=== PATIENT | male | born 1965 | race Caucasian/White ===

== ENCOUNTER 2017-01-28 20:39 | Inpatient (IN) ==
[2017-01-28] MEDS ORDERED: Nitroglycerin 0.4 MG TAB.SUBL SL ONE (20:49)
[2017-01-28] MEDS: Nitroglycerin 0.4 MG TAB.SUBL SL ONE ×3 (20:50→21:19)
--- NOTE | 2017-01-28 21:06 | Emergency Department Note ---
Disposition Clinical Impression: Suicidal ideation Chest pain Qualifiers: Chest pain type: unspecified Qualified Code(s): R07.9 - Chest pain, unspecified Disposition: Admitted As Inpatient Condition: Good Time of Disposition: 23:49 Chest Pain HPI - General Chief Complaint: ED Chest Pain Stated Complaint: SI/chest pain Time Seen by Provider: 01/28/17 20:45 Source: patient, EMS Mode of arrival: EMS Limitations: no limitations Vital Signs Reviewed: Yes Nursing Notes Reviewed: Yes - History of Present Illness HPI Narrative: 51-year-old male history of bipolar, depression, smoker presents with chest pain and suicidal ideation. States earlier today around 1600 he began to develop a dull ache in his left chest nonradiating. He has associated shortness of breath, nausea and vomiting. Denies any diaphoresis. No history of cardiac ischemic disease. He denies any family history. Nothing makes a better worse. He was given 4 baby aspirin and nitro without much relief. He has also endorsing suicidal ideation for the past 2 days. No definitive plan. Denies any hallucination. Denies any congestion. He is recovering from a alcohol abuse program and does admit to drinking 3 beers earlier today. No access to guns at home. He has a history of [facility]izations at [facility]. Was recently discharged. He just recently saw his psychiatrist day ago he continues to take lithium and Latuda. No changes to medications. He has a history of suicide attempt by attempting to cast himself with carbon monoxide turning the car on in the closed space. Severity scale (1-10): 8 - Related Data Home Medications Medication Instructions Recorded Confirmed Baclofen [Lioresal] 15 mg PO TID 01/29/17 01/29/17 Cedar Carbonate 300 mg PO DAILY 01/29/17 01/29/17 Cedar Carbonate [Cedar 600 mg PO HS 01/29/17 01/29/17 Carbonate] Lurasidone HCl [Latuda] 80 g PO QPM 01/29/17 01/29/17 Propranolol [Inderal] 10 mg PO BID 01/29/17 01/29/17 Trazodone HCl [Trazodone HCl] 100 mg PO HS 01/29/17 01/29/17 hydrOXYzine HCl [Hydroxyzine HCl] 75 mg PO Q6HR PRN 01/29/17 01/29/17 Allergies Allergy/AdvReac Type Severity Reaction Status Date / Time No Known Allergies Allergy Verified 01/28/17 20:41 All systems ED: reviewed and negative except as stated. Review of Systems: As Per HPI Constitutional: Denies: fever, chills Cardiovascular: Reports: chest pain. Denies: dyspnea on exertion Respiratory: Reports: dyspnea. Denies: cough Gastrointestinal: Reports: nausea, vomiting. Denies: abdominal pain Genitourinary: Denies: urgency, dysuria Musculoskeletal: Denies: back pain, neck pain Integumentary: Denies: rash, abrasion Neurological: Denies: headache, weakness Psychiatric: Reports: depression, suicidal thoughts. Denies: anxiety, homicidal thoughts, auditory hallucinations, visual hallucinations Endocrine: Denies: fatigue Chest Pain PMH - Past Medical History Medical history: Reports: no medical history Psychiatric history: Reports: anxiety, bipolar, depression, panic disorder, PTSD , prior suicide attempt, previous psychiatric hospitalization - Social History Smoking Status: Former smoker Alcohol use: Reports: occasionally Drug use: Reports: none Physical Exam - General Limitations: no limitations General appearance: alert, in no apparent distress - Head Head exam: atraumatic, normocephalic, normal inspection - Eye Eye exam: Present: normal appearance, PERRL, EOMI - ENT ENT exam: normal exam, normal oropharynx, mucous membranes moist - Neck Neck exam: Present: normal inspection, full ROM, trachea midline - Chest Chest inspection: Present: normal inspection, symmetric chest wall rise, tenderness (Left chest) - Respiratory Respiratory exam: Present: normal lung sounds bilaterally. Absent: respiratory distress, wheezes - Cardiovascular Cardiovascular exam: Present: regular rate, normal rhythm, normal heart sounds. Absent: systolic murmur, diastolic murmur - Abdominal Exam Abdominal exam: Present: soft, Non-Tender, normal bowel sounds. Absent: tenderness, distention, guarding, rebound, rigidity - Extremities Exam Extremities exam: Present: normal inspection, full ROM, normal capillary refill. Absent: tenderness, pedal edema, calf tenderness - Back Exam Back exam: Present: normal inspection, full ROM. Absent: tenderness, CVA tenderness (R), CVA tenderness (L) - Neurological Exam Neurological exam: Present: alert, oriented X3 - Psychiatric Psychiatric exam: Present: depressed, suicidal ideation. Absent: normal affect , normal mood, anxious - Skin Skin exam: Present: warm, dry, intact, normal color Course Course Narrative: 51-year-old male presented with chest pain. He has some associated shortness of breath, nausea and vomiting. Denies any history of cardiac ischemic disease. No significant family history. Does admit to alcohol use earlier today. He has also endorsing some suicidal ideation. He has recently been admitted to the psychiatric facility at the [facility]. Chest pain workup initiated. Patient has been given aspirin as well as nitro will attempt to control his pain better. - Reevaluation(s) Reevaluation #1: EKG is unremarkable. Troponins negative. His labs or otherwise unremarkable. He continues to have some chest discomfort after given nitroglycerin, Toradol as well as Dilaudid. He has a heart score 3. He also still endorses some suicidal ideation. Due to chest pain he cannot be discharged to the [facility] for psychiatric evaluation. [facility]imbres here for further chest pain workup and have behavioral health [facility] inpatient. Patients agreeable with this plan. Impression is chest pain and suicidal ideation. - Consultations Consultation #1: Spoke with on-call hospitalist popeye Alejandro to admit for chest pain R/O ACS and suicidal ideation. No further orders at this time Time: 23:06 Vital Signs Temperature 99.0 F 01/28/17 20:44 Pulse Rate 80 01/28/17 20:44 Respiratory Rate 20 01/28/17 20:44 Blood Pressure 143/88 01/28/17 20:44 O2 Sat by Pulse Oximetry 96 01/28/17 20:44 Temperature 97.8 F 01/29/17 03:14 Pulse Rate 58 01/29/17 03:14 Respiratory Rate 16 01/29/17 03:14 Blood Pressure 111/74 01/29/17 03:14 O2 Sat by Pulse Oximetry 94 01/29/17 03:14 Oxygen Delivery Oxygen Delivery Room Air Chest Pain - Medical Records Medical records reviewed: Yes I reviewed the patient's medical records. - Lab Data Lab results reviewed: Yes I reviewed the patient's lab results. Result diagrams: 01/28/17 21:10 01/28/17 21:10 Lab Results 01/28/17 01/28/17 01/28/17 Range/Units 21:10 21:10 21:10 WBC 8.5 (4.3-11.1) K/mcL RBC 4.31 (4.19-5.50) M/mcL Hgb 13.0 (12.9-16.9) g/dL Hct 39.1 (37.5-50.1) % MCV 90.7 (83.0-100.0) fL MCH 30.2 (28.0-33.3) pg MCHC 33.2 (31.6-35.5) g/dL RDW 15.9 H (11.5-14.5) % Plt Count 158 (140-400) K/mcL MPV 9.1 L (9.4-12.4) fL Immature Gran % 0.4 (0-4) % Seg Neutrophils % 69.0 % Lymphocytes % 19.6 % Monocytes % 8.5 % Eosinophils % 1.9 % Basophils % 0.6 % Neutrophils # 5.9 (1.6-8.9) K/mcL Lymphocytes # 1.7 (0.6-4.6) K/mcL Monocytes # 0.7 (0.0-1.3) K/mcL Eosinophils # 0.2 (0.0-0.6) K/mcL Basophils # 0.1 (0.0-0.2) K/mcL Sodium 136 (136-145) mEq/L Potassium 3.8 (3.5-4.5) mEq/L Chloride 104 (98-109) mEq/L Carbon Dioxide 22 (19-29) mEq/L BUN 13 (8-26) mg/dL Creatinine 1.13 (0.72-1.25) mg/dL Est GFR ( Amer) > 60 (> 60) Est GFR (Non-Af Amer) > 60 (> 60) BUN/Creatinine Ratio 12 (6-26) Glucose 114 H (70-99) mg/dL Calculated Osmolality 283 (280-300) Calcium 9.1 (8.6-10.8) mg/dL Troponin I (0-0.03) ng/mL Urine Color (Yellow) Urine Clarity (Clear) Urine pH (5.0-8.0) pH Units Ur Specific [place] (1.010-1.025) Urine Protein (Neg-Trace) mg/dL Urine Glucose (UA) (Normal) mg/dL Urine Ketones (Negative) mg/dL Urine Blood (Negative) Urine Nitrite (Negative) Urine Bilirubin (Negative) Urine Urobilinogen (Normal) mg/dL Ur Leukocyte Esterase (Negative) Salicylates < 5.0 L (15-30) mg/dL Urine Opiates Screen (Lfbtzt=860) ng/mL Acetaminophen < 1.0 L (10-30) mcg/mL Ur Barbiturates Screen (Gbqhkc=308) ng/mL Ur Phencyclidine Scrn (Cutoff=25) ng/mL Ur Amphetamines Screen (Bcncdt=2521) ng/mL U Benzodiazepines Scrn (Sesure=599) ng/mL Urine Cocaine Screen (Cutoff= 300) ng/mL U Marijuana (THC) Screen (Cutoff = 50) ng/mL Ethyl Alcohol < 10 (0-10) mg/dL 01/28/17 01/28/17 01/28/17 Range/Units 21:10 21:35 21:35 WBC (4.3-11.1) K/mcL RBC (4.19-5.50) M/mcL Hgb (12.9-16.9) g/dL Hct (37.5-50.1) % MCV (83.0-100.0) fL MCH (28.0-33.3) pg MCHC (31.6-35.5) g/dL RDW (11.5-14.5) % Plt Count (140-400) K/mcL MPV (9.4-12.4) fL Immature Gran % (0-4) % Seg Neutrophils % % Lymphocytes % % Monocytes % % Eosinophils % % Basophils % % Neutrophils # (1.6-8.9) K/mcL Lymphocytes # (0.6-4.6) K/mcL Monocytes # (0.0-1.3) K/mcL Eosinophils # (0.0-0.6) K/mcL Basophils # (0.0-0.2) K/mcL Sodium (136-145) mEq/L Potassium (3.5-4.5) mEq/L Chloride (98-109) mEq/L Carbon Dioxide (19-29) mEq/L BUN (8-26) mg/dL Creatinine (0.72-1.25) mg/dL Est GFR ( Amer) (> 60) Est GFR (Non-Af Amer) (> 60) BUN/Creatinine Ratio (6-26) Glucose (70-99) mg/dL Calculated Osmolality (280-300) Calcium (8.6-10.8) mg/dL Troponin I 0.00 (0-0.03) ng/mL Urine Color Yellow (Yellow) Urine Clarity Clear (Clear) Urine pH 6.5 (5.0-8.0) pH Units Ur Specific [place] 1.023 (1.010-1.025) Urine Protein Negative (Neg-Trace) mg/dL Urine Glucose (UA) Normal (Normal) mg/dL Urine Ketones Negative (Negative) mg/dL Urine Blood Negative (Negative) Urine Nitrite Negative (Negative) Urine Bilirubin Negative (Negative) Urine Urobilinogen Normal (Normal) mg/dL Ur Leukocyte Esterase Negative (Negative) Salicylates (15-30) mg/dL Urine Opiates Screen Negative (Sfvfgp=629) ng/mL Acetaminophen (10-30) mcg/mL Ur Barbiturates Screen Negative (Pcdpac=198) ng/mL Ur Phencyclidine Scrn Negative (Cutoff=25) ng/mL Ur Amphetamines Screen Negative (Tmheun=5298) ng/mL U Benzodiazepines Scrn Negative (Mdvnfb=934) ng/mL Urine Cocaine Screen Negative (Cutoff= 300) ng/mL U Marijuana (THC) Screen Negative (Cutoff = 50) ng/mL Ethyl Alcohol (0-10) mg/dL - Radiology Data Radiology results reviewed: Yes I reviewed the patient's radiology results. Chest X-Ray 01/28/17 20:59 IMPRESSION: No acute process. D/ / Ricky Stock MD / Ricky Stock MD Interpreting Provider: Ricky Stock MD - EKG Data EKG attestation: Yes I reviewed and interpreted this EKG. EKG results narrative: EKG performed 2041 normal sinus rhythm 81 bpm normal axis, no ST elevations or depression, diffuse T wave flattening, no T wave inversion, Q waves seen in inferior leads. Intervals are within normal limits. This is a abnormal EKG. No old EKG for comparison. No acute ischemic changes. Heart Score - Score History: Slightly Suspicious EKG: Non Specific repolarisation Disturbance Age: 45-65 Risk Factors: 1-2 risk factors Troponin: Less than normal limit HEART Score Total: 3 Attestation Statement - Attestation Attestation: I, Pietro Manuel MD, personally evaluated this patient and discussed their management with the resident physician. I reviewed the resident's note and agree with the documented findings, medical decision making, and plan of care. 51-year-old male presents to the emergency department with a complaint of left upper chest pain which started approximately 5 hours prior to arrival. The pain is been constant since onset and is worse with exertion. Patient describes the pain as a dull ache and pressure and rates the pain an 8 out of 10. He does complain of shortness of breath associated with the pain. No diaphoresis. Nausea and some vomiting. No abdominal pain. No cough or fever. Patient states he has a history of heart problems but has never had an ME or stents. He also has a psychiatric history and states that he just got out of the [facility] psychiatric unit about 3 weeks ago. He admits to having suicidal ideations. He also has a history of alcohol abuse and admits to drinking at least 3 beers today. On examination patient is a well-developed well-nourished male in no acute distress. He is alert and oriented 3. There is no cyanosis or diaphoresis. Chest is nontender to palpation. Breath sounds are clear and equal bilaterally. Heart regular rate and rhythm. Abdomen is soft and nontender with normal bowel sounds. EKG shows a normal sinus rhythm with a heart rate of 81. There is a Q-wave in lead 3 and aVF suggesting a possible old ME inferiorly. There is also diffuse T -wave flattening. No acute ST segment elevation or depression is noted.
[2017-01-28 21:21] LABS: Basophils # 0.1 K/mcL (0.0-0.2); Basophils % 0.6 %; Eosinophils # 0.2 K/mcL (0.0-0.6); Eosinophils % 1.9 %; Hematocrit 39.1 % (37.5-50.1); Immature Granulocytes % 0.4 % (0-4); Lymphocytes # 1.7 K/mcL (0.6-4.6); Lymphocytes % 19.6 %; Mean Corpuscular HGB Conc 33.2 g/dL (31.6-35.5); Mean Corpuscular Hemoglobin 30.2 pg (28.0-33.3); Mean Corpuscular Volume 90.7 fL (83.0-100.0); Mean Platelet Volume 9.1 fL (9.4-12.4); Monocytes # 0.7 K/mcL (0.0-1.3); Monocytes % 8.5 %; Neutrophils # 5.9 K/mcL (1.6-8.9); Platelet Count 158 K/mcL (140-400); Red Blood Count 4.31 M/mcL (4.19-5.50); Red Cell Distribution Width 15.9 % (11.5-14.5)
[2017-01-28] MEDS ORDERED: Ketorolac 30 MG/ML VIAL IVP ONE (21:32)
[2017-01-28 21:34] LABS: BUN/Creatinine Ratio 12 (6-26); Blood Urea Nitrogen 13 mg/dL (8-26); Calcium 9.1 mg/dL (8.6-10.8); Carbon Dioxide 22 mEq/L (19-29); Chloride 104 mEq/L (98-109); Glucose 114 mg/dL (70-99); Osmolality,Calculated 283 (280-300); Sodium 136 mEq/L (136-145); eGFR For African Americans > 60 (> 60); eGFR For Non-African Americans > 60 (> 60)
[2017-01-28 21:35] LABS: Potassium 3.8 mEq/L (3.5-4.5)
[2017-01-28 21:42] LABS: Bilirubin,Urine Negative (Negative); Blood,Urine Negative (Negative); Clarity,Urine Clear (Clear); Color,Urine Yellow (Yellow); Glucose,Urine (UA) Normal (Normal); Ketones,Urine Negative (Negative); Leukocyte Esterase,Urine Negative (Negative); Nitrite,Urine Negative (Negative); PH,Urine 6.5 pH Units (5.0-8.0); Protein,Urine Negative (Neg-Trace); Specific Gravity,Urine 1.023 (1.010-1.025); Urobilinogen,Urine Normal (Normal)
[2017-01-28 21:47] LABS: Amphetamine Screen,Urine Negative ng/mL (Cutoff=1000); Barbiturate Screen,Urine Negative ng/mL (Cutoff=200); Benzodiazepines Screen,Urine Negative ng/mL (Cutoff=200); Cannabinoid Screen,Urine Negative ng/mL (Cutoff = 50); Cocaine Screen,Urine Negative ng/mL (Cutoff= 300); Opiate Screen,Urine Negative ng/mL (Cutoff=300); Phencyclidine Screen,Urine Negative ng/mL (Cutoff=25)
[2017-01-28] MEDS ORDERED: *HR* HYDROmorphone (PF) 1 MG/ML SYRINGE IVP ONE (22:02)
[2017-01-28] MEDS ORDERED: Ondansetron 4 MG/2 ML VIAL IVP ONE (22:02)
[2017-01-28 22:07] LABS: Acetaminophen < 1.0 mcg/mL (10-30); Ethanol < 10 mg/dL (0-10); Salicylate < 5.0 mg/dL (15-30)
[2017-01-29] MEDS ORDERED: Naloxone 0.4 MG/ML INJ IVP PRN (00:27)
[2017-01-29] MEDS ORDERED: Ondansetron ODT 4 MG TAB.RAPDIS SL PRN (00:27)
--- NOTE | 2017-01-29 00:29 | Internal Med History&Physical ---
<Chelsi Jesus - Last Filed: 01/29/17 02:14> Date of Encounter: 01/29/17 Time of Encounter: 00:25 Assessment and Plan (1) Chest pain Current visit: Yes Status: Acute Atypical chest pain. Since 4pm and has not gone away, retrosternal with radiation down left arm. Dull pressure. Nitro and rest does not relieve but dilaudid helps. Nothing makes worse. EKG showed NSR, Q wave in lead 3 and AVF. Diffuse T-wave flattening. No ST changes. Troponin 0.0 Vitals stable toxicology screen negative U/A negative Plan: Echo ordered stress test ordered acetaminophen prn pain cardiac monitoring zofran prn Qualifiers: Chest pain type: unspecified Qualified Code(s): R07.9 - Chest pain, unspecified (2) Suicidal ideation Current visit: Yes Status: Acute suicidal ideation 2 days. Has been suicidal in the past. Has not gone through with a plan for suicide. Was admitted to a psych unit 3 weeks ago for SI and diagnosed with bipolar depression where he was started on lithium, latuda, and trazodone. Plan: Consult psych in the morning suicidal precautions sitter pink slip check lithium level to check if therapeutic awaiting patient record from [place] before starting his medications Internal Medicine - H&P: HPI Chief complaint: chest pain Admitted From: Hospital to Hospital Transfer Plans for Post Hospital Care: Home History of present illness: Mr. Pressley is a 51 year old male with a past medical history of bipolar depression who presented to [facility] as a transfer from the [place] complaining of chest pain and suicidal ideations. He stated that the chest pain started today at 4pm while laying in bed. He reports the pain is retrosternal and radiates down his left arm making it feel numb. He describes it as a dull pressure like someone "punched" him in the chest. He stated it has not gone away since starting. He stated that Nitroglycerin and rest didn't help but dialudid did reduce pain from 8/10 to 6/10. Nothing makes it worse such as movement or breathing. He admits nausea, vomiting, diaphoresis, dizzy. Denies shortness of breathe, syncope, headache, cough, abdominal pain, palpitations. He reports that he has never had a PR or stents placed. He stated this has happened before almost 1yr ago where he was admitted to a hospital in [place] for 5 days and given dilaudid which seemed to help and then discharged. He reports that he has had suicidal ideations for 2 days now and it has not improved and he decided he needed to come in to the hospital. He has been on new bipolar medications for 3 weeks now since his diagnosis when admitted to a psych unit for SI. He was transferred from the [place] where he was participating in an alcoholic program. He has not had alcohol in 3 weeks but had 3 beers today. He is a full code. EKG done in the ED showed a normal sinus rhythm with a heart rate of 81. There is a Q-wave in lead 3 and aVF suggesting a possible old PR inferiorly. There is also diffuse T-wave flattening. No acute ST segment elevation or depression is noted. Past Med Surg Social Fam HX - Past Medical History Medical history: no medical history Psychiatric history: anxiety, bipolar, depression, panic disorder, PTSD, prior suicide attempt, previous psychiatric hospitalization - Past Surgical History Surgical History: no surgical history - Social History Smoking Status: Former smoker Alcohol use: occasionally (in alcohol addiction program) Drug use: none - Family History Mother Hx Family Cardiac Disorders: No Hx Family Respiratory Disorders: No Hx Family Cancer: No Hx Family GI Disorders: No Hx Family Genitourinary Disorders: No Hx Family Endocrine Disorder: No Hx Family Musculoskeletal Disorders: No Hx Family Neuromuscular Disorders: No Hx Family Neurologic Disorders: No Hx Family HEENT Disorders: No Hx Family Autoimmune Disorders: No Hx Family Reproductive Disorders: No Hx Family Psychosocial Disorders: No Hx Family Medical Disorders: No Father Hx Family Cardiac Disorders: No Hx Family Cancer: No Internal Medicine - H&P: Meds Baclofen [Lioresal] 15 mg PO TID 01/29/17 [History] Cook Carbonate 300 mg PO DAILY 01/29/17 [History] Cook Carbonate [Cook Carbonate] 600 mg PO HS 01/29/17 [History] Lurasidone HCl [Latuda] 80 g PO QPM 01/29/17 [History] Propranolol [Inderal] 10 mg PO BID 01/29/17 [History] Trazodone HCl [Trazodone HCl] 100 mg PO HS 01/29/17 [History] hydrOXYzine HCl [Hydroxyzine HCl] 75 mg PO Q6HR PRN 01/29/17 [History] 3 Allergy/AdvReac Type Severity Reaction Status Date / Time No Known Allergies Allergy Verified 01/28/17 20:41 All Systems PM: A 10-system review of systems was performed and is negative for pertinent findings except as documented above in the HPI. - Constitutional Constitutional: no chills, no fever(s), no falls, no weakness - EENT Eyes: no blurry vision, no diplopia, no loss of vision Nose, mouth and throat: no dysphagia, no neck pain - Cardiovascular Cardiovascular ROS IM: chest pain, diaphoresis, no dyspnea, no edema, no palpitations, no syncope - Respiratory Respiratory: no cough, no dyspnea, no hemoptysis, no wheezing - Gastrointestinal Gastrointestinal: nausea, vomiting, no abdominal pain, no dysphagia, no hematemesis, no melena - Genitourinary Genitourinary ROS male: no dysuria - Musculoskeletal Musculoskeletal ROS IM: numbness (left arm), no muscle cramps - Integumentary Integumentary IM: no rash, no jaundice - Neurological Neurological ROS: dizziness, no frequent falls, no tremor(s) - Psychiatric Psychiatric: depression, hopelessness, suicidal ideation, no homicidal ideation - Constitutional Vitals: Temp Pulse Resp BP Pulse Ox 98.0 F 67 16 116/61 94 01/28/17 23:45 01/28/17 23:45 01/28/17 23:45 01/28/17 23:45 01/28/17 23:45 General appearance: Present: A&O X 3, no acute distress - Head Head exam: Present: atraumatic, normocephalic - Eye Eye exam: Present: conjuntiva pink. Absent: scleral icterus - Neck Neck exam general surgery: Present: supple. Absent: lymphadenopathy - Respiratory Respiratory exam: Present: CTAB. Absent: rales, rhonchi, wheezes - Cardiovascular Cardiovascular exam: Present: RRR, +S1, +S2. Absent: systolic murmur - GI/Abdominal GI/Abdominal exam: Present: normal bowel sounds, soft. Absent: guarding, tenderness - Extremities Exam Extremities exam: Absent: cyanotic, tenderness - Back Exam Back exam: Present: normal inspection. Absent: tenderness - Neurological Exam Neurological exam: Present: oriented X3. Absent: altered, facial droop - Psychiatric Psychiatric exam: Present: normal affect, normal mood, suicidal ideation. Absent: agitated, anxious, flat affect, homicidal ideation, manic - Skin Skin exam: Present: dry, intact Internal Med - H&P Results - Labs CBC & Chem 7: 01/28/17 21:10 01/28/17 21:10 <Claudio Banuelos - Last Filed: 01/29/17 04:44> Date of Encounter: 01/29/17 Internal Medicine - H&P: HPI History of present illness: Mr. Pressley is a 51 year old male All Systems PM: A 10-system review of systems was performed and is negative for pertinent findings except as documented above in the HPI. - Constitutional Vitals: Temp Pulse Resp BP Pulse Ox 97.8 F 58 16 111/74 94 01/29/17 03:14 01/29/17 03:14 01/29/17 03:14 01/29/17 03:14 01/29/17 03:14 Internal Med - H&P Results - Labs CBC & Chem 7: 01/28/17 21:10 01/28/17 21:10 - Attending Attestation I conducted a face to face diagnostic evaluation of this patient and my medical decision-making was reviewed with the Resident Physician, Dr. Chelsi Jesus. I agree with the documented findings, disposition and treatment plan as described except to the extent set forth below: Patient reports aching, severe left upper chest pain. EKG reviewed by myself shows normal sinus rhythm 80 bpm, Q waves in leads [address] changes. Plan: Admit. Trend troponin. entry level electrical engineer. Rule out ACS. Obtain echocardiogram. Patient admits to prevalent suicidal ideation over the last 2 days with no definite plan. We will obtain psychiatric evaluation. Start suicidal precautions. He is at high risk due to suicidal ideation.
[2017-01-29] MEDS ORDERED: Acetaminophen 325 MG TABLET PO PRN (01:21)
[2017-01-29] MEDS: *HR* HYDROcodone/Acet 5/325 mg TABLET PO PRN (04:44)
[2017-01-29] MEDS ORDERED: Ketorolac 30 MG/ML VIAL IVP ONE (10:28)
[2017-01-29] MEDS ORDERED: Ondansetron ODT 4 MG TAB.RAPDIS SL ONE (10:29)
[2017-01-29] MEDS ORDERED: *HR* LORazepam 2 MG/ML VIAL IVP PRN (10:35)
[2017-01-29] MEDS ORDERED: 0.9 % Sodium Chloride 250 ML IVC ONE (10:42)
[2017-01-29 10:53] LABS: Basophils % 0.6 %; Eosinophils # 0.2 K/mcL (0.0-0.6); Eosinophils % 2.5 %; Hematocrit 41.2 % (37.5-50.1); Hemoglobin 13.7 g/dL (12.9-16.9); Immature Granulocytes % 0.3 % (0-4); Lymphocytes # 1.2 K/mcL (0.6-4.6); Lymphocytes % 19.4 %; Mean Corpuscular HGB Conc 33.3 g/dL (31.6-35.5); Mean Corpuscular Hemoglobin 30.2 pg (28.0-33.3); Mean Corpuscular Volume 90.9 fL (83.0-100.0); Mean Platelet Volume 9.5 fL (9.4-12.4); Monocytes # 0.6 K/mcL (0.0-1.3); Monocytes % 9.4 %; Neutrophils # 4.3 K/mcL (1.6-8.9); Platelet Count 145 K/mcL (140-400); Red Blood Count 4.53 M/mcL (4.19-5.50); Segmented Neutrophils % 67.8 %
[2017-01-29 11:07] LABS: Alanine Aminotransferase 24 Units/L (0-55); Albumin 3.5 g/dL (3.5-5.0); Albumin/Globulin Ratio 0.9 (1.1-2.2); Alkaline Phosphatase 81 Units/L (38-126); Amylase 53 Units/L (25-125); Aspartate Amino Transferase 25 Units/L (5-34); BUN/Creatinine Ratio 12 (6-26); Bilirubin,Direct 0.3 mg/dL (0.0-0.5); Bilirubin,Indirect 0.6 mg/dL (0.0-1.2); Bilirubin,Total 0.9 mg/dL (0.2-1.2); Blood Urea Nitrogen 12 mg/dL (8-26); Calcium 8.7 mg/dL (8.6-10.8); Carbon Dioxide 26 mEq/L (19-29); Chloride 106 mEq/L (98-109); Globulin 3.7 g/dL (2.4-3.5); Glucose 121 mg/dL (70-99); Lipase 20 Units/L (8-78); Osmolality,Calculated 289 (280-300); Sodium 139 mEq/L (136-145); Total Protein 7.2 g/dL (6.0-8.3); eGFR For African Americans > 60 (> 60); eGFR For Non-African Americans > 60 (> 60)
[2017-01-29 11:08] LABS: Potassium 4.5 mEq/L (3.5-4.5)
[2017-01-29] MEDS: Pantoprazole 40 MG VIAL IVP SCH (11:08)
--- NOTE | 2017-01-29 12:04 | Consult Note ---
Date of Encounter: 01/29/17 Time of Encounter: 12:00 Assessment & Recommendation (1) Major depress dis, severe Current visit: Yes Status: Acute Assessment & Recommendation: [facility]. Will likely require transfer back to their facility but may want to see what their discharge recommendations were first. Can continue his discharge meds from them as well. Meds stabilized him to the point he could be safely discharged a couple of weeks ago. Doubt he has been taking them correctly if he has been drinking. Hopefully restarting them will provide some mood relief. If still suicidal once medically clear will need to return to [place] for further inpatient psychiatric treatment. History of Present Illness Requesting Physician: Fern Lau CNP Reason for consult: suicidal ideation History of present illness: Mr. Pressley is a 51 year old male who was admitted for chest pain but also endorsed SI. Long history of Bipolar Disorder. Client reports 14 hospitalizations. Past suicide attempts. [facility]. Seems to have some hospital dependency issues. Looking to get back into a facility. Also started drinking again. Was participating in a recovery program. Reports alcohol is his drug of choice. Claims he was prescribed Shell and Latuda by the [place] but very vague about whether or not he was compliant. If he was abusing alcohol doubt he was taking medications appropriately. CC: Fern Lau CNP Past Med Surg Social Fam HX - Past Medical History Medical history: no medical history - Past Psychiatric History Psychiatric history: Reports: bipolar, depression, prior suicide attempt, previous psychiatric hospitalization Family psychiatric history: Unknown Family History of Suicide: Unknown - Past Surgical History Surgical History: no surgical history - Social History Smoking Status: Former smoker Alcohol use: occasionally Drug use: none - Family History Mother Hx Family Cardiac Disorders: No Hx Family Respiratory Disorders: No Hx Family Cancer: No Hx Family GI Disorders: No Hx Family Genitourinary Disorders: No Hx Family Endocrine Disorder: No Hx Family Musculoskeletal Disorders: No Hx Family Neuromuscular Disorders: No Hx Family Neurologic Disorders: No Hx Family HEENT Disorders: No Hx Family Autoimmune Disorders: No Hx Family Reproductive Disorders: No Hx Family Psychosocial Disorders: No Hx Family Medical Disorders: No Father Hx Family Cardiac Disorders: No Hx Family Cancer: No Medications & Allergies Baclofen [Lioresal] 15 mg PO TID 01/29/17 [History] Shell Carbonate 300 mg PO QAM 01/29/17 [History] Shell Carbonate [Shell Carbonate] 600 mg PO HS 01/29/17 [History] Lurasidone HCl [Latuda] 80 mg PO QPM 01/29/17 [History] Propranolol [Inderal] 10 mg PO BID 01/29/17 [History] Trazodone HCl [Trazodone HCl] 100 mg PO HS 01/29/17 [History] hydrOXYzine HCl [Hydroxyzine HCl] 75 mg PO Q6HR PRN 01/29/17 [History] 3 Allergy/AdvReac Type Severity Reaction Status Date / Time No Known Allergies Allergy Verified 01/28/17 20:41 Review of Systems Constitutional: Denies: fever, chills, weakness, weight change Eyes: Denies: eye pain, vision change Ears, Nose, Throat: Denies: ear pain, throat pain, dental pain, hearing loss, congestion Cardiovascular: Reports: chest pain Respiratory: Denies: cough, dyspnea, wheezes Gastrointestinal: Denies: abdominal pain, nausea, vomiting, diarrhea, constipation Genitourinary male: Denies: urgency, dysuria, frequency, genital lesions Genitourinary female: Denies: urgency, dysuria, frequency, abnormal menses, dyspareunia Musculoskeletal: Denies: joint swelling, joint pain Integumentary: Denies: rash, lesions, pruritus Neurological: Denies: headache, weakness, numbness, memory loss Endocrine: Denies: fatigue, heat or cold intolerance Hematologic/Lymphatic: Denies: easy bruising, lymphadenopathy Allergic/Immunologic: Denies: urticaria, itchy eyes Mental Status Exam Patient orientation: Yes Person, Yes Time, Yes Place Level of alertness: Alert Patient appearance: Appropriate Behavior: calm, cooperative Psychomotor activity: Normal Eye contact: Maintains Eye Contact Mood description: Depressed Affect description: congruent with mood Speech pattern: Normal rate, Normal rhythm, Normal tone Speech volume: Normal Thought process: Linear Thought content: Yes Suicidal ideation, No Homicidal ideation, No Overt delusions Perceptual disturbances: No Auditory hallucinations, No Visual hallucinations Memory description: Grossly Intact Patient reliability: Questionable Historian Intelligence estimate: Average Judgment: Limited Insight: Partial Results - Vital Signs Vital signs: Temp Pulse Resp BP Pulse Ox 98.4 F 73 15 133/88 95 01/29/17 11:41 01/29/17 11:41 01/29/17 11:41 01/29/17 11:59 01/29/17 11:41 - Drug Levels and Toxicology Drug Levels and Toxicology: Drug Levels and Toxicity 01/29/17 03:11 Shell 0.5 L - Labs Labs: Laboratory Last Values WBC 6.3 K/mcL (4.3-11.1) 01/29/17 10:45 RBC 4.53 M/mcL (4.19-5.50) 01/29/17 10:45 Hgb 13.7 g/dL (12.9-16.9) 01/29/17 10:45 Hct 41.2 % (37.5-50.1) 01/29/17 10:45 MCV 90.9 fL (83.0-100.0) 01/29/17 10:45 MCH 30.2 pg (28.0-33.3) 01/29/17 10:45 MCHC 33.3 g/dL (31.6-35.5) 01/29/17 10:45 RDW 16.0 % (11.5-14.5) H 01/29/17 10:45 Plt Count 145 K/mcL (140-400) 01/29/17 10:45 MPV 9.5 fL (9.4-12.4) 01/29/17 10:45 Immature Gran % 0.3 % (0-4) 01/29/17 10:45 Seg Neutrophils % 67.8 % 01/29/17 10:45 Lymphocytes % 19.4 % 01/29/17 10:45 Monocytes % 9.4 % 01/29/17 10:45 Eosinophils % 2.5 % 01/29/17 10:45 Basophils % 0.6 % 01/29/17 10:45 Neutrophils # 4.3 K/mcL (1.6-8.9) 01/29/17 10:45 Lymphocytes # 1.2 K/mcL (0.6-4.6) 01/29/17 10:45 Monocytes # 0.6 K/mcL (0.0-1.3) 01/29/17 10:45 Eosinophils # 0.2 K/mcL (0.0-0.6) 01/29/17 10:45 Basophils # 0.0 K/mcL (0.0-0.2) 01/29/17 10:45 Sodium 139 mEq/L (136-145) 01/29/17 10:45 Potassium 4.5 mEq/L (3.5-4.5) 01/29/17 10:45 Chloride 106 mEq/L (98-109) 01/29/17 10:45 Carbon Dioxide 26 mEq/L (19-29) 01/29/17 10:45 BUN 12 mg/dL (8-26) 01/29/17 10:45 Creatinine 1.01 mg/dL (0.72-1.25) 01/29/17 10:45 Est GFR ( Amer) > 60 (> 60) 01/29/17 10:45 Est GFR (Non-Af Amer) > 60 (> 60) 01/29/17 10:45 BUN/Creatinine Ratio 12 (6-26) 01/29/17 10:45 Glucose 121 mg/dL (70-99) H 01/29/17 10:45 Calculated Osmolality 289 (280-300) 01/29/17 10:45 Calcium 8.7 mg/dL (8.6-10.8) 01/29/17 10:45 Total Bilirubin 0.9 mg/dL (0.2-1.2) 01/29/17 10:45 Direct Bilirubin 0.3 mg/dL (0.0-0.5) 01/29/17 10:45 Indirect Bilirubin 0.6 mg/dL (0.0-1.2) 01/29/17 10:45 AST 25 Units/L (5-34) 01/29/17 10:45 ALT 24 Units/L (0-55) 01/29/17 10:45 Alkaline Phosphatase 81 Units/L (38-126) 01/29/17 10:45 Troponin I 0.00 ng/mL (0-0.03) 01/29/17 10:29 Serum Total Protein 7.2 g/dL (6.0-8.3) 01/29/17 10:45 Albumin 3.5 g/dL (3.5-5.0) 01/29/17 10:45 Globulin 3.7 g/dL (2.4-3.5) H 01/29/17 10:45 Albumin/Globulin Ratio 0.9 (1.1-2.2) L 01/29/17 10:45 Amylase 53 Units/L (25-125) 01/29/17 10:45 Lipase 20 Units/L (8-78) 01/29/17 10:45 Urine Color Yellow (Yellow) 01/28/17 21:35 Urine Clarity Clear (Clear) 01/28/17 21:35 Urine pH 6.5 pH Units (5.0-8.0) 01/28/17 21:35 Ur Specific Landing 1.023 (1.010-1.025) 01/28/17 21:35 Urine Protein Negative mg/dL (Neg-Trace) 01/28/17 21:35 Urine Glucose (UA) Normal mg/dL (Normal) 01/28/17 21:35 Urine Ketones Negative mg/dL (Negative) 01/28/17 21:35 Urine Blood Negative (Negative) 01/28/17 21:35 Urine Nitrite Negative (Negative) 01/28/17 21:35 Urine Bilirubin Negative (Negative) 01/28/17 21:35 Urine Urobilinogen Normal mg/dL (Normal) 01/28/17 21:35 Ur Leukocyte Esterase Negative (Negative) 01/28/17 21:35 Salicylates < 5.0 mg/dL (15-30) L 01/28/17 21:10 Urine Opiates Screen Negative ng/mL (Lotiqr=500) 01/28/17 21:35 Acetaminophen < 1.0 mcg/mL (10-30) L 01/28/17 21:10 Ur Barbiturates Screen Negative ng/mL (Uuuaax=020) 01/28/17 21:35 Ur Phencyclidine Scrn Negative ng/mL (Cutoff=25) 01/28/17 21:35 Ur Amphetamines Screen Negative ng/mL (Filegn=7206) 01/28/17 21:35 U Benzodiazepines Scrn Negative ng/mL (Ffkxlq=269) 01/28/17 21:35 Shell 0.5 mEq/L (0.6-1.2) L 01/29/17 03:11 Urine Cocaine Screen Negative ng/mL (Cutoff= 300) 01/28/17 21:35 U Marijuana (THC) Screen Negative ng/mL (Cutoff = 50) 01/28/17 21:35 Ethyl Alcohol < 10 mg/dL (0-10) 01/28/17 21:10 Consult Discharge Plan - Plan [facility]errals: [facility] [Non-Partnered Physician] -
[2017-01-29] MEDS: *HR* Promethazine 25 MG/ML VIAL IVP PRN ×2 (12:09→16:15)
--- NOTE | 2017-01-29 12:21 | Internal Med Progress Note ---
Date of Encounter: 01/29/17 Time of Encounter: 09:30 - Assessment and plan (1) Chest pain Current Visit: Yes Status: Acute Assessment and plan: Patient was transferred from the [facility] complaining of chest pain and suicidal ideations. Our social group worker states that patient has violated the parameters/regulations of the outpatient substance abuse program at the [place] and was told he was not allowed to return, this is when he began having chest pain and suicidal ideations. bindery worker also reports that he is homeless. He reports the chest pain started Ter[facility] admission at 1600 while he was lying in bed. He reports that radiated down his left arm, described as a dull pressure like someone punched him in the chest. Nitroglycerin and aspirin did not help, but Dilaudid did help. Patient reports nausea, vomiting, diaphoresis, and dizziness at time of admission. He denied shortness of breath, syncope or headache. No cough no abdominal pain and no palpitations. He denies any prior cardiac history. Similar episode one year ago, he was in the hospital [facility] for 5 days, at that time Dilaudid also helped his chest pain and then he was discharged. Mr. Pressley was to have a stress test this morning. He had an episode of hematemesis yesterday and one today prior to him going to the stress test. The staff refused to take him to the stress test due to nausea. He was medicated for this and received improvement. He will have Stress test tomorrow. He remains on the shim plug cutter. His chest x-ray was negative. Troponins were negative. His vital signs are stable and within normal limits. Labs are also within normal limits. The patient is not reproducible with inspiration, palpation, or movement. Echocardiogram has been reordered for the morning. Stress test will be completed in the morning. Nitroglycerin or Tylenol for chest pain. [facility] protocol for possible chest pain due to withdrawal. No narcotics for pain control. Continue to monitor labs. Continue telemetry. Qualifiers: Chest pain type: unspecified Qualified Code(s): R07.9 - Chest pain, unspecified (2) Suicidal ideation Current Visit: Yes Status: Acute Assessment and plan: Patient reported suicidal ideation for 2 days admission. Prior history of suicidal ideation in the past. Patient was admitted to inpatient psychiatric unit 3 weeks ago for same, diagnosed with bipolar depression and he was started on lithium, Latuda, and trazodone. Suspect the patient has not been taking his medications regularly, his lithium level is low at 0.5. Patient has been seen by psychiatry today. I was unable to speak with her prior to her leaving for the day. CARDIAC REHABILITATION PROGRAM DIRECTOR on the floor today states that she spoke with social group worker from the [place]. Patient has been told he is not allowed to return to substance abuse program at the [place] due to long history of noncompliance. He was most recently found by the psychiatrist at the liquor store when he was not supposed to be off the grounds. At the time he was confronted by the psychiatrist, this is when he began having chest pain and saying he was suicidal. He was then transferred here for evaluation of chest pain. Psychiatry here recommends that he return to inpatient psych at the [place] after he is medically clear. (3) DVT prophylaxis Current Visit: Yes Status: Acute Assessment and plan: JACOB hose and early ambulation. (4) Non-compliance Current Visit: Yes Status: Acute Assessment and plan: Patient has been told by staff at the [place] that he is not allowed to return to the inpatient substance abuse program due to noncompliance. He has been found off the grounds of the [place] several times by staff, most recently he was found at the liquor store by the psychiatrist. bindery worker also reports that patient is homeless once he leaves here. teleservices representative is on board to assist with discharge planning. - Time Spent With Patient less than 15 minutes - Subjective Interval history: Pt was seen and assessed at 0930 this a.m. Pt had 2 episodes of hemetemesis since yesterday, one while I was in the room. Watery emesis with blood noted. GI has been consulted and will do an EGD this afternoon. Pt denies knowledge of esophageal varices. Pt was to have stress test this a.m, however, it was delayed due to staff not wanting to take him due to nausea. Pt continues to have left chest pain. Pt reports that his last drink was 1700 last night, pt may be in withdrawl. He drinks a fifth of vodka daily. [facility] initiated this a.m. Pt appeared to be agitated this a.m, denies dizziness or lightheadedness. Denies abdominal pain, SOB, or peripheral edema. Pt will stay overnight for continued testing, he verbalized understanding. - Constitutional Vitals: Temp Pulse Resp BP Pulse Ox 98.4 F 73 15 133/88 95 01/29/17 11:41 01/29/17 11:41 01/29/17 11:41 01/29/17 11:59 01/29/17 11:41 General appearance: Present: cooperative, mild distress, A&O X 3, answers questions appropriately - Head Head exam: Present: atraumatic, normal inspection, normocephalic - Eye Eye exam: Present: normal appearance, conjuntiva pink, sclera anicteric - Neck Neck exam general surgery: Present: normal inspection, supple, trachea midline. Absent: lymphadenopathy, tenderness - Respiratory Respiratory exam: Present: CTAB. Absent: accessory muscle use, rales, respiratory distress, rhonchi, wheezes - Cardiovascular Cardiovascular exam: Present: RRR, +S1, +S2. Absent: diastolic murmur, gallop, rubs, systolic murmur - GI/Abdominal GI/Abdominal exam: Present: normal bowel sounds, soft, tenderness, no peritoneal signs. Absent: distended, hepatomegaly - Extremities Exam Extremities exam: Present: normal capillary refill, normal inspection, warm, radial pulses palpable and symmetrical. Absent: calf tenderness, cyanotic, pedal edema, tenderness - Neurological Exam Neurological exam: Present: alert, oriented X3, no focal deficits. Absent: pronater drift, facial droop, speech deficit - Skin Skin exam: Present: dry, intact, normal color, warm. Absent: rash Internal Medicine: Result - Labs CBC & Chem 7: 01/29/17 10:45 01/29/17 10:45 Labs: Short CBC 01/29/17 Range/Units 10:45 WBC 6.3 (4.3-11.1) K/mcL Hgb 13.7 (12.9-16.9) g/dL Hct 41.2 (37.5-50.1) % Plt Count 145 (140-400) K/mcL Neutrophils # 4.3 (1.6-8.9) K/mcL BMP 01/29/17 10:45 Sodium 139 Potassium 4.5 Chloride 106 Carbon Dioxide 26 BUN 12 Creatinine 1.01 Glucose 121 H Calcium 8.7 Cardiac Enzymes 01/29/17 Range/Units 10:29 Troponin I 0.00 (0-0.03) ng/mL Liver Function 01/29/17 Range/Units 10:45 Total Bilirubin 0.9 (0.2-1.2) mg/dL Direct Bilirubin 0.3 (0.0-0.5) mg/dL AST 25 (5-34) Units/L ALT 24 (0-55) Units/L Alkaline Phosphatase 81 (38-126) Units/L Albumin 3.5 (3.5-5.0) g/dL Consult Discharge Plan - Plan [facility]errals: [facility] [Non-Partnered Physician] -
--- NOTE | 2017-01-29 13:12 | Gastroenterology Consult Note ---
<Thais Landrum M - Last Filed: 01/29/17 13:09> Date of Encounter: 01/29/17 Time of Encounter: 11:45 - Assessment and plan (1) Hematemesis Current Visit: Yes Status: Acute Assessment and plan: 51 year old male with history of alcohol abuse. He had hematemesis, likely alcoholic gastritis but UGI bleeding/varicies needs ruled out. Will proceed with EGD. He is continued PPI. Labs are stable. (2) Chest pain Current Visit: Yes Status: Acute Assessment and plan: May be GI related, EGD today. Is having cardiac workup. Qualifiers: Chest pain type: unspecified Qualified Code(s): R07.9 - Chest pain, unspecified - Time Spent With Patient Total time spent is greater than 50% in coordination of care (as documented) at patient's floor/unit and/or counseling patient: GI History of Present Illness - Data of Consult Patient: new to practice Consult date: 01/29/17 Requesting Physician: Fern Lau CNP - Consult Narrative Reason for consult: hematemesis History of present illness: Mr. Pressley is a 51 year old male with a past medical history of bipolar depression , PTSD, anxiety, and panic disorder. He was transferred from the [place] with chest pain and suicidal ideation. He has been treated in outpatient substance abuse program which he was recently released from due to noncompliance with alcohol. He has a history of alcoholism and reports drinking 1/5 of alcohol daily. He last drank yesterday. He is complaining of substernal chest pain. He denies radiation at this time. He states dilaudid helped in the ER but nothing else helps with the pain. He is also reporting 2 episodes of bright red bleeding in his emesis yesterday. He states pain has been ongoing for 3-4 days but most severe yesterday. He denies gerd. He denies EGD. He had colonoscopy 2 years ago delmy [facility] and reports it was negative. He denies bloody or tarry stools. He denies diarrhea or constipation. he states he has had a history of elevated LFTS and pancreatitis in the past but denies any liver cirrhosis. He denies any NSAIDS or anticoagulatnts. CXR and labs were unremarkable. EGD: denies Colon: 2015 negative per pt (Rupesh) NSAIDS: denies anticoagulants: none Past Med Surg Social Fam HX - Past Medical History Medical history: no medical history Psychiatric history: bipolar, depression, prior suicide attempt, previous psychiatric hospitalization - Past Surgical History Surgical History: no surgical history - Social History Smoking Status: Former smoker Alcohol use: occasionally Drug use: none - Family History Mother Hx Family Cardiac Disorders: No Hx Family Respiratory Disorders: No Hx Family Cancer: No Hx Family GI Disorders: No Hx Family Genitourinary Disorders: No Hx Family Endocrine Disorder: No Hx Family Musculoskeletal Disorders: No Hx Family Neuromuscular Disorders: No Hx Family Neurologic Disorders: No Hx Family HEENT Disorders: No Hx Family Autoimmune Disorders: No Hx Family Reproductive Disorders: No Hx Family Psychosocial Disorders: No Hx Family Medical Disorders: No Father Hx Family Cardiac Disorders: No Hx Family Cancer: No Review of Systems: GI: as per [facility]: denies fever, or chills EYES: denies yellow discoloration ENT: denies pain with swallowing or difficulty swallowing CARDIO: denies chest pain, palpitations RESP: No Shortness of breath with exertion : denies change in color of urine NEURO: denies any weakness HEME: Denies any bruising MS: chronic joint pain, joint swelling or back pain. DERM: denies rash or itching PSYCH: history of anxiety or depression - Constitutional Vitals: Temp Pulse Resp BP Pulse Ox 98.4 F 73 15 133/88 95 01/29/17 11:41 01/29/17 11:41 01/29/17 11:41 01/29/17 11:59 01/29/17 11:41 Exam: CONSTITUTIONAL:~alert, no acute distress.~HEAD:~normocephalic.~EYES:~no jaundice.~NECK:~no obvious swelling.~HEART:~regular rate and rhythm, no murmurs. ~LUNGS:~bilateral good air entry.~ABDOMEN:~non distended, soft, tenderepigastric area, no masses palpable, no organomegaly.~RECTAL EXAM:~ Deferred.~EXTREMITIES:~no clubbing, cyanosis or edema.~SKIN:~no stigmata of chronic liver disease.~NEUROLOGIC:~no obvious focal defect.~~~~ Results - Labs CBC & Chem 7: 01/29/17 10:45 01/29/17 10:45 Labs: Last Result Calcium 8.7 mg/dL (8.6-10.8) 01/29/17 10:45 Troponin I 0.00 ng/mL (0-0.03) 01/29/17 10:29 Salicylates < 5.0 mg/dL (15-30) L 01/28/17 21:10 Urine Opiates Screen Negative ng/mL (Nxazgk=576) 01/28/17 21:35 Entire Visit Hgb 13.7 g/dL (12.9-16.9) 01/29/17 10:45 Hct 41.2 % (37.5-50.1) 01/29/17 10:45 Total Bilirubin 0.9 mg/dL (0.2-1.2) 01/29/17 10:45 AST 25 Units/L (5-34) 01/29/17 10:45 ALT 24 Units/L (0-55) 01/29/17 10:45 Amylase 53 Units/L (25-125) 01/29/17 10:45 Lipase 20 Units/L (8-78) 01/29/17 10:45 Acetaminophen < 1.0 mcg/mL (10-30) L 01/28/17 21:10 Consult Discharge Plan - Plan Referrals: [facility] [Non-Partnered Physician] - <Raj Santiago - Last Filed: 01/29/17 19:09> Date of Encounter: 01/29/17 Time of Encounter: 18:00 - Time Spent With Patient Total time spent is greater than 50% in coordination of care (as documented) at patient's floor/unit and/or counseling patient: GI History of Present Illness - Data of Consult Requesting Physician: Fern Lau CNP - Consult Narrative History of present illness: Mr. Pressley is a 51 year old male - Constitutional Vitals: Temp Pulse Resp BP Pulse Ox 98.3 F 65 17 121/78 94 01/29/17 18:39 01/29/17 18:39 01/29/17 18:39 01/29/17 18:39 01/29/17 18:39 Results - Labs CBC & Chem 7: 01/29/17 10:45 01/29/17 10:45 Labs: Last Result Calcium 8.7 mg/dL (8.6-10.8) 01/29/17 10:45 Troponin I 0.00 ng/mL (0-0.03) 01/29/17 10:29 Salicylates < 5.0 mg/dL (15-30) L 01/28/17 21:10 Urine Opiates Screen Negative ng/mL (Fpzykl=943) 01/28/17 21:35 Entire Visit Hgb 13.7 g/dL (12.9-16.9) 01/29/17 10:45 Hct 41.2 % (37.5-50.1) 01/29/17 10:45 Total Bilirubin 0.9 mg/dL (0.2-1.2) 01/29/17 10:45 AST 25 Units/L (5-34) 01/29/17 10:45 ALT 24 Units/L (0-55) 01/29/17 10:45 Amylase 53 Units/L (25-125) 01/29/17 10:45 Lipase 20 Units/L (8-78) 01/29/17 10:45 Acetaminophen < 1.0 mcg/mL (10-30) L 01/28/17 21:10 - Attending Attestation I examined this patient and my medical decision-making was reviewed with the Resident Physician. I agree with the documented findings, disposition and treatment plan as described except to the extent set forth below.
[2017-01-29] MEDS ORDERED: *HR* Morphine 2 MG/ML SYRINGE IVP ONE ×2 (15:53→15:54)
[2017-01-29] MEDS ORDERED: *HR* Midazolam HCl 5 MG/5 ML VIAL IVP ONE (16:24)
[2017-01-29] MEDS ORDERED: *HR* FentaNYL (PF) 100 MCG/2 ML VIAL ONE (16:25)
[2017-01-29] MEDS ORDERED: 0.9 % Sodium Chloride 1,000 ML IVC SCH (16:45)
[2017-01-29] MEDS: Thiamine (B-1) 100 MG, Folic Acid 1 MG, MVI, adult with vitamin K 10 ML in 0.9 % Sodi... IVPB SCH (17:07)
--- NOTE | 2017-01-29 20:10 | Electrocardiograph Report ---
[place] [id number] Test Date: 2017-01-28 Pat Name: Luke Pressley Department: 104 Room: 3B Gender: M Back Roller: : 1965 Requested By: Andrew Epstein Order Number: [id number] Reading MD: Cesar Sanchez MD Measurements Intervals [place] Rate: 81 P: 27 OK: 196 QRS: -5 QRSD: 101 T: -2 QT: 377 QTc: 414 Interpretive Statements SINUS RHYTHM MINIMAL VOLTAGE CRITERIA FOR LVH INFERIOR MYOCARDIAL INFARCTION, PROBABLY OLD Electronically Signed On 01-29-2017 20:09:05 EST by Cesar Sanchez MD
[2017-01-30 05:26] LABS: Basophils % 0.5 %; Eosinophils # 0.2 K/mcL (0.0-0.6); Eosinophils % 1.9 %; Hematocrit 40.2 % (37.5-50.1); Hemoglobin 13.3 g/dL (12.9-16.9); Immature Granulocytes % 0.2 % (0-4); Lymphocytes # 1.6 K/mcL (0.6-4.6); Mean Corpuscular HGB Conc 33.1 g/dL (31.6-35.5); Mean Corpuscular Hemoglobin 30.5 pg (28.0-33.3); Mean Corpuscular Volume 92.2 fL (83.0-100.0); Mean Platelet Volume 10.1 fL (9.4-12.4); Monocytes # 0.7 K/mcL (0.0-1.3); Monocytes % 8.8 %; Neutrophils # 5.8 K/mcL (1.6-8.9); Platelet Count 145 K/mcL (140-400); Red Blood Count 4.36 M/mcL (4.19-5.50); Red Cell Distribution Width 15.9 % (11.5-14.5); Segmented Neutrophils % 69.6 %
[2017-01-30 05:49] LABS: BUN/Creatinine Ratio 10 (6-26); Blood Urea Nitrogen 9 mg/dL (8-26); Calcium 8.7 mg/dL (8.6-10.8); Carbon Dioxide 26 mEq/L (19-29); Chloride 105 mEq/L (98-109); Glucose 91 mg/dL (70-99); Osmolality,Calculated 282 (280-300); Potassium 3.9 mEq/L (3.5-4.5); Sodium 137 mEq/L (136-145); eGFR For African Americans > 60 (> 60); eGFR For Non-African Americans > 60 (> 60)
[2017-01-30] MEDS ORDERED: Regadenoson 0.4 MG/5 ML SYRINGE IVP ONE (10:03)
[2017-01-30] MEDS: Pantoprazole 40 MG VIAL IVP SCH (11:30)
[2017-01-30] MEDS: *HR* HYDROcodone/Acet 5/325 mg TABLET PO PRN (12:54)
--- NOTE | 2017-01-30 13:32 | Internal Med Progress Note ---
Date of Encounter: 01/30/17 Time of Encounter: 08:50 - Assessment and plan (1) Chest pain Current Visit: Yes Status: Acute Assessment and plan: Patient was transferred from the [facility] complaining of chest pain and suicidal ideations. Our social service agency director states that patient has violated the parameters/regulations of the outpatient substance [place] the [facility] and was told he was not allowed to return, this is when he began having chest pain and suicidal ideations. He reports the chest pain started day of admission at 1600 while he was lying in bed. He reports that radiated down his left arm, described as a dull pressure like someone punched him in the chest. Nitroglycerin and aspirin did not help, but Dilaudid did help. Patient reports nausea, vomiting, diaphoresis , and dizziness at time of admission. He denied shortness of breath, syncope or headache. No cough no abdominal pain and no palpitations. He denies any prior cardiac history. Similar episode one year ago, he was in the hospital [facility] for 5 days, at that time Dilaudid also helped his chest pain and then he was discharged. Mr. Pressley was to have a stress test morning of 01/29. He had an episode of hematemesis 01/28 and one 01/29 with nausea prior to going to stress test. The staff refused to take him to the stress test due to nausea. He was medicated for this and received improvement. His chest x-ray was negative. Troponins were negative. His vital signs are stable and within normal limits. Labs are also within normal limits. The pain is not reproducible with inspiration, palpation, or movement. Echocardiogram shows LVEF of 50-55% with mild LV DD and no significant valvular dysfunction. Stress test was negative for ischemia or infarct, gated EF is 53% with no evidence of T I D. Nitroglycerin or Tylenol for chest pain. [facility] protocol for possible chest pain due to withdrawal. No narcotics for pain control. Continue to monitor labs. Continue telemetry. Qualifiers: Chest pain type: unspecified Qualified Code(s): R07.9 - Chest pain, unspecified (2) Suicidal ideation Current Visit: Yes Status: Acute Assessment and plan: Patient reported suicidal ideation for 2 days admission. Prior history of suicidal ideation in the past. Patient was admitted to inpatient psychiatric unit 3 weeks ago for same, diagnosed with bipolar depression and he was started on lithium, Latuda, and trazodone. Suspect the patient has not been taking his medications regularly, his lithium level is low at 0.5. Patient has been seen by psychiatry, psychiatrist recommends return to [facility] patient needs placement for mental health issues after discharge. AERODYNAMICS ENGINEER states that she spoke with social service agency director from the [facility]. Patient has been told he is not allowed to return to substance abuse program at the [facility] due to long history of noncompliance. He was most recently found by the psychiatrist at the liquor store when he was not supposed to be off the grounds. At the time he was confronted by the psychiatrist, this is when he began having chest pain and saying he was suicidal. He was then transferred here for evaluation of chest pain. Psychiatry here recommends that he return to inpatient psych at the [facility] after he is medically clear. Patient reports that he is homeless and not be able to go to any homeless shelters due to having a warrant for his arrest. (3) Non-compliance Current Visit: Yes Status: Acute Assessment and plan: Patient has been told by staff at the [facility] that he is not allowed to return to the inpatient substance abuse program due to noncompliance. He has been found off the grounds of the [facility] several times by staff, most recently he was found at the liquor store by the psychiatrist. boom stick worker also reports that patient is homeless once he leaves here. donor services team leader is on board to assist with discharge planning. (4) Alcohol abuse Current Visit: Yes Status: Chronic Assessment and plan: Is not allowed to return to be a substance abuse program. Patient has long history of alcohol abuse. He reports that he normally drinks 1/5 of vodka a day. His last drink was 5:00 PM the night before admission. Patient has had CIWA protocol available. He has not used any Ativan per protocol. Will DC tomorrow morning if he is not using it. Patient is not allowed to return to be a substance abuse program after discharge due to noncompliance. (5) DVT prophylaxis Current Visit: Yes Status: Acute Assessment and plan: JACOB edwige and early ambulation. - Time Spent With Patient less than 15 minutes - Subjective Interval history: Pt was seen and assessed at 0850 this a.m. Pt states that he is still having chest pain, rated 5/10. He also reports that he is still suicidal and still has a sitter and a pink slip. Pt was seen by [facility], [facility] This a.m, pt began vomiting again, nurse reports that it was streaked with blood, I had seen pt approximately 5 min before and he denied nausea since yesterday. Pt states that he will be unable to go to a homeless snf after discharge due to having an arrest warrant currently. He denies dizziness, abdominal pain, sob, or headache. Will wait for SW to return after the holiday, tomorrow, to work on placement. - Constitutional Vitals: Temp Pulse Resp BP Pulse Ox 98.6 F 73 16 136/86 93 01/30/17 07:34 01/30/17 07:34 01/30/17 07:34 01/30/17 07:34 01/30/17 07:34 General appearance: Present: cooperative, mild distress, A&O X 3, no acute distress, answers questions appropriately - Head Head exam: Present: atraumatic, normal inspection, normocephalic - Eye Eye exam: Present: normal appearance, conjuntiva pink, sclera anicteric - Neck Neck exam general surgery: Present: supple, trachea midline. Absent: lymphadenopathy, tenderness - Respiratory Respiratory exam: Present: CTAB. Absent: accessory muscle use, chest wall tenderness, rales, respiratory distress, rhonchi, wheezes - Cardiovascular Cardiovascular exam: Present: RRR, +S1, +S2. Absent: diastolic murmur, gallop, rubs, systolic murmur - GI/Abdominal GI/Abdominal exam: Present: normal bowel sounds, soft. Absent: distended, hepatomegaly, tenderness - Extremities Exam Extremities exam: Present: normal capillary refill, warm, radial pulses palpable and symmetrical. Absent: calf tenderness, cyanotic, pedal edema, tenderness - Neurological Exam Neurological exam: Present: alert, oriented X3, no focal deficits. Absent: facial droop, speech deficit - Skin Skin exam: Present: dry, intact, normal color, warm. Absent: rash Internal Medicine: Result - Labs CBC & Chem 7: 01/30/17 03:37 01/30/17 03:37 Labs: Short CBC 01/30/17 Range/Units 03:37 WBC 8.4 (4.3-11.1) K/mcL Hgb 13.3 (12.9-16.9) g/dL Hct 40.2 (37.5-50.1) % Plt Count 145 (140-400) K/mcL Neutrophils # 5.8 (1.6-8.9) K/mcL BMP 01/30/17 03:37 Sodium 137 Potassium 3.9 Chloride 105 Carbon Dioxide 26 BUN 9 Creatinine 0.91 Glucose 91 Calcium 8.7 - Impressions Impressions Echocardiogram 01/29/17 12:39 Impressions: LVEF 50-55%. Mild left ventricular diastolic dysfunction. No significant valvular dysfunction. Left Ventricular Wall Motion: Rest Echo Findings All wall segments showed normal motion. Findings: Study Quality * Technically adequate exam. Right Ventricle * Normal right ventricular structure and function. Right Atrium * Normal right atrial size. Mitral Valve * Normal mitral valve structure and function. Interatrial Septum * No evidence of PFO by color Doppler. Aorta * Normally sized aortic root. Pericardium * The pericardium appears normal. ECG Findings * Sinus bradycardia. Left Ventricle * Mild left ventricular diastolic dysfunction. * LVEF 50-55%. Tricuspid Valve * Estimated RVSP is 28 mmHg. * No pulmonary hypertension. * Trace tricuspid regurgitation. * No tricuspid stenosis. Pulmonic Valve * No pulmonic stenosis. * Mild pulmonic regurgitation. Aortic Valve * Normal aortic valve structure. * No aortic stenosis. * Trace aortic regurgitation. Left Atrium * Severely dilated left atrium. IVC * Normal IVC dimensions and inspiratory collapse. Consult Discharge Plan - Plan Instructions: Heart Failure (DC) [facility]errals: [facility] [Non-Partnered Physician] -
[2017-01-30] MEDS: Thiamine (B-1) 100 MG, Folic Acid 1 MG, MVI, adult with vitamin K 10 ML in 0.9 % Sodi... IVPB SCH (17:06)
[2017-01-31 08:17] VITALS: BP 162/82
[2017-01-31 13:36] LABS: Basophils # 0.1 K/mcL (0.0-0.2); Basophils % 0.7 %; Eosinophils # 0.2 K/mcL (0.0-0.6); Eosinophils % 2.9 %; Hematocrit 45.3 % (37.5-50.1); Immature Granulocytes % 0.4 % (0-4); Lymphocytes # 1.7 K/mcL (0.6-4.6); Lymphocytes % 23.3 %; Mean Corpuscular HGB Conc 33.6 g/dL (31.6-35.5); Mean Corpuscular Hemoglobin 30.6 pg (28.0-33.3); Mean Corpuscular Volume 91.3 fL (83.0-100.0); Mean Platelet Volume 9.8 fL (9.4-12.4); Monocytes # 0.5 K/mcL (0.0-1.3); Monocytes % 6.3 %; Platelet Count 148 K/mcL (140-400); Red Blood Count 4.96 M/mcL (4.19-5.50); Red Cell Distribution Width 15.9 % (11.5-14.5); Segmented Neutrophils % 66.4 %
[2017-01-31 13:38] LABS: Hemoglobin 15.2 g/dL (12.9-16.9)
[2017-01-31 13:49] LABS: BUN/Creatinine Ratio 7 (6-26); Blood Urea Nitrogen 7 mg/dL (8-26); Calcium 9.4 mg/dL (8.6-10.8); Carbon Dioxide 23 mEq/L (19-29); Chloride 105 mEq/L (98-109); Glucose 122 mg/dL (70-99); Osmolality,Calculated 281 (280-300); Potassium 4.5 mEq/L (3.5-4.5); Sodium 136 mEq/L (136-145); eGFR For African Americans > 60 (> 60); eGFR For Non-African Americans > 60 (> 60)
--- NOTE | 2017-01-31 15:47 | Discharge Summary ---
Date of Encounter: 01/31/17 Time of Encounter: 10:10 - Discharge Diagnosis (1) Chest pain Priority: Primary Status: Acute Comments: Patient was transferred from the [facility] complaining of chest pain and suicidal ideations. Our social welfare clerk states that patient has violated the parameters/regulations of the outpatient substance abuse program at the [place] and was told he was not allowed to return, this is when he began having chest pain and suicidal ideations. He reports the chest pain started day of admission at 1600 while he was lying in bed. He reports that radiated down his left arm, described as a dull pressure like someone punched him in the chest. Nitroglycerin and aspirin did not help, but Dilaudid did help. Patient reports nausea, vomiting, diaphoresis , and dizziness at time of admission. He denied shortness of breath, syncope or headache. No cough no abdominal pain and no palpitations. He denies any prior cardiac history. Similar episode one year ago, he was in the hospital [facility] for 5 days, at that time Dilaudid also helped his chest pain and then he was discharged. Mr. Pressley was to have a stress test morning of 01/29. He had an episode of hematemesis 01/28 and one 01/29 with nausea prior to going to stress test. The staff refused to take him to the stress test due to nausea. He was medicated for this and received improvement. His chest x-ray was negative. Troponins were negative. His vital signs are stable and within normal limits. Labs are also within normal limits. The pain is not reproducible with inspiration, palpation, or movement. Echocardiogram shows LVEF of 50-55% with mild LV DD and no significant valvular dysfunction. Stress test was negative for ischemia or infarct, gated EF is 53% with no evidence of T I D. Pt denies chest pain on assessment today. Qualifiers: Chest pain type: unspecified Qualified Code(s): R07.9 - Chest pain, unspecified (2) Suicidal ideation Priority: Secondary Status: Acute Comments: Patient reported suicidal ideation for 2 days admission. Prior history of suicidal ideation in the past. Patient was admitted to inpatient psychiatric unit 3 weeks ago for same, diagnosed with bipolar depression and he was started on lithium, Latuda, and trazodone. Suspect the patient has not been taking his medications regularly, his lithium level is low at 0.5. He denies plan, but states that he feels like he would like to . Patient has been seen by psychiatry, [facility] for [facility] health issues after discharge. HOT TAR ROOFER HELPER states that she spoke with social welfare clerk from the [facility]. Patient has been told he is not allowed to return to substance abuse program at the [facility] due to long history of noncompliance. He was most recently found by the psychiatrist at the liquor store when he was not supposed to be off the grounds. At the time he was confronted by the psychiatrist, this is when he began having chest pain and saying he was suicidal. He was then transferred here for evaluation of chest pain. Psychiatry here recommends that he return to inpatient psych at the [facility] after he is medically clear. Patient reports that he is homeless and not be able to go to any homeless shelters due to having a warrant for his arrest. Pt has been accepted for transfer for mental health evaluation by TRUDY Webb, at [facility]. (3) Non-compliance Priority: Primary Status: Acute Comments: Patient has been told by staff at the [facility] that he is not allowed to return to the inpatient substance abuse program due to noncompliance. [facility] has been [facility] times by staff, most recently he was found at the liquor store by the psychiatrist. food prep worker also reports that patient is homeless once he leaves here. Pt states that he cannot go to a homeless custodial due to the fact that he has a warrant for his arrest. Pt has been accepted back to the [facility]. (4) Alcohol abuse Priority: Primary Status: Chronic Comments: Is not allowed to return to be a substance abuse program. Patient has long history of alcohol abuse. He reports that he normally drinks 1/5 of vodka a day. His last drink was 5:00 PM the night before admission. Patient has had CIWA protocol available. He has not used any Ativan per protocol. Patient is not allowed to return to be a substance abuse program after discharge due to noncompliance. (5) DVT prophylaxis Priority: Secondary Status: Acute Comments: JACOB gibbons and early ambulation - Discharge Medications Home Medications: Baclofen [Lioresal] 15 mg PO TID 01/29/17 [History] Greenhorn Carbonate 300 mg PO QAM 01/29/17 [History] Greenhorn Carbonate 600 mg PO HS 01/29/17 [History] Lurasidone HCl [Latuda] 80 mg PO QPM 01/29/17 [History] Propranolol [Inderal] 10 mg PO BID 01/29/17 [History] Trazodone HCl 100 mg PO HS 01/29/17 [History] hydrOXYzine HCl [Hydroxyzine HCl] 75 mg PO Q6HR PRN 01/29/17 [History] Allergies/Adverse Reactions: 3 Allergy/AdvReac Type Severity Reaction Status Date / Time No Known Allergies Allergy Verified 01/28/17 20:41 Procedures/tests Complete & Pending: Procedures Performed prior 72 hours Category Date Time Status NM gerardo perf SPECT multi [NM] Routine Exams 01/29/17 09:54 Taken EKG [ECG 12 lead ECG] [ECG] Stat Y 01/29/17 04:30 Completed EV echocardiogram Routine Y 01/29/17 12:39 Completed SP pharm nuclear stress Routine Y 01/29/17 09:52 Completed Date of admission: 01/29/17 02:41 Primary care physician: PCP NONE Consults: 01/29/17 10:31 Consult to Gastroenterology [CONS] Routine Consulting Provider: Gastroenterology Zaina Reason for Consult: hemoptysis x 2 over 2 days, history of alcoholism, nausea Time Notified: 10:32 Call Completed: Yes 01/29/17 10:35 Consult to Checker Stocker [CONS] Routine Reason for SW Consult: resources Discharging clinician: Fern Lau Anticipated date of discharge: 01/31/17 - Patient Status Disposition: Home, Self-Care Condition: Good - Discharge Instructions [facility] With: [facility] [[facility]nered Physician] - Forms: ED Satisfaction Letter - Diet and Activity Activity: increase activity as tolerated, resume usual activities as tolerated Diet: advance to your usual diet Interval History: Please see assessment and plan for hospital course. Hospital course: Mr. Pressley is a 51 year old male - Time Spent with Patient Total time spent providing and/or coordinating discharge services: Less than 30 minutes - Constitutional Vitals: Temp Pulse Resp BP Pulse Ox 98.2 F 73 17 162/82 93 01/31/17 08:16 01/31/17 08:16 01/31/17 08:16 01/31/17 08:16 01/31/17 08:16 General appearance: Present: cooperative, mild distress, A&O X 3, no acute distress, answers questions appropriately - Head Head exam: Present: atraumatic, normal inspection, normocephalic - Eye Eye exam: Present: normal appearance, conjuntiva pink, sclera anicteric - Neck Neck exam general surgery: Present: supple, trachea midline. Absent: lymphadenopathy, tenderness - Respiratory Respiratory exam: Present: CTAB. Absent: accessory muscle use, decreased breath sounds, rales, rhonchi, wheezes - Cardiovascular Cardiovascular exam: Present: RRR, +S1, +S2. Absent: diastolic murmur, gallop, rubs, systolic murmur - GI/Abdominal GI/Abdominal exam: Present: normal bowel sounds, soft. Absent: distended, hepatomegaly, tenderness - Extremities Exam Extremities exam: Present: warm, radial pulses palpable and symmetrical. Absent : calf tenderness, cyanotic, pedal edema - Neurological Exam Neurological exam: Present: CN II-XII intact, oriented X3, no focal deficits, strengths equal and symetr throughout. Absent: facial droop, speech deficit - Skin Skin exam: Present: dry, intact, normal color, warm. Absent: rash - VTE Documentation of Mechanical Device: Graduated compression elastic hosiery
--- NOTE | 2017-02-03 19:23 | Electrocardiograph Report ---
[place] [id number] Test Date: 2017-01-31 Pat Name: Luke Pressley Department: 113 Room: 3B Gender: M Lapper: MIKE : 1965 Requested By: Fern Lau Order Number: [id number] Reading MD: Cesar Sanchez MD Measurements Intervals Rosalia Rate: 68 P: 52 HI: 202 QRS: 12 QRSD: 102 T: 5 QT: 389 QTc: 407 Interpretive Statements SINUS RHYTHM Electronically Signed On 02-03-2017 19:21:30 EST by Cesar Sanchez MD
== END 2017-01-31 16:35 | disposition home or self-care (01) | DRG 313 ==
LOC: 3BNU 20:39 → EMEROO 20:39 → 3BNU 23:22
PROVIDERS: ADMIT Internal Medicine; ATTEND Registered Nurse
PROC: ENDOEBX (2017-01-29 14:50)